=== PATIENT | male | born 1990 | race African-American/Black ===

== ENCOUNTER 2019-02-26 17:28 | Emergency (ER) | payer SELFPAY ==
[2019-02-26] MEDS ORDERED: Ketorolac Tromethamine 30 MG/ML VIAL ONE (18:47)
== END 2019-02-26 18:44 | disposition home or self-care (01) ==
LOC: ERS 17:28
DX: S06.0X0A Concussion without loss of consciousness, initial encounter (principal); M62.830 Muscle spasm of back; V43.52XA Car driver injured in collision with other type car in traffic accident, initial encounter
CPT/HCPCS: 96372; 99283; J1885